=== PATIENT | male | born 1980 | race African-American/Black ===

== ENCOUNTER 2016-08-21 21:15 | Emergency (ER) | payer OTHER ==
[2016-08-21 21:21] VITALS: BP 118/56; PULSE 88; TEMP 98.7; BMI 28.8
--- NOTE | 2016-08-21 22:01 | PDOC ---
History of Present Illness - General Chief Complaint: Pain, Acute Stated Complaint: LOW BACK/HIP PAIN Time Seen by Provider: 08/21/16 21:20 - History of Present Illness Initial Comments: This 36-year-old man, otherwise healthy presents with a several hour history of right lower back/right buttock pain. 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 He denies trauma or overuse of the area. Throughout the subsequent hours pain became more severe. He denies radiation of pain below the buttock/numbness of leg or groin/weakness. No previous history of lower back pain. No history of trauma at any time to the lower back or buttock. He has had no urinary or bowel abnormalities today. Past History - Past Medical History Allergies/Adverse Reactions: Allergies Allergy/AdvReac Type Severity Reaction Status Date / Time No Known Allergies Allergy Verified 08/21/16 21:16 Home Medications: Ambulatory Orders Diclofenac Sodium [Voltaren -] 75 mg PO BID PRN #20 tablet. 08/21/16 Tizanidine HCl [Zanaflex (Nf) -] 2 mg PO TID #12 tablet 08/21/16 Asthma: No Diabetes: No HTN: No Other medical history: DENIES - Psycho/Social/Smoking Cessation Hx Anxiety: No Suicidal Ideation: No Smoking Status: Yes Smoking History: Current every day smoker Have you smoked in the past 12 months: Yes Number of Cigarettes Smoked Daily: 15 Information on smoking cessation initiated: Yes 'Breaking Loose' booklet given: 08/21/16 Hx Alcohol Use: Yes Drug/Substance Use Hx: No Substance Use Type: None Review of Systems - Review of Systems Able to Perform ROS?: Yes Comments:: 12 point review of systems is negative except for what is noted in the history of present illness *Physical Exam - Vital Signs Last Vital Signs Temp Pulse Resp BP Pulse Ox 98.7 F 88 16 118/56 100 08/21/16 21:16 08/21/16 21:16 08/21/16 21:16 08/21/16 21:16 08/21/16 21:16 - Physical Exam Comments: GENERAL: The patient is awake, alert, and fully oriented, in moderate distress Vital signs as noted. HEAD: Normal with no signs of trauma. EYES: Pupils equal, round and reactive to light, extraocular movements intact, sclera anicteric, conjunctiva clear with no pallor. ENT: moist mucous membranes. Ears normal, nares patent, oropharynx clear without exudates. NECK: Normal range of motion, supple without lymphadenopathy, JVD, or masses. LUNGS: Breath sounds equal, clear to auscultation bilaterally. No wheeze/ crackles. HEART: Regular rate and rhythm, normal S1 and S2 without murmur or rub. ABDOMEN: Soft/nontender/nondistended. BS wnl. No guarding or rebound. No palpable masses. No hepatosplenomegaly BACK:direct tenderness to palpation right sacroiliac joint, no deformity noted mild tenderness sciatic notch,right side pain on straight leg raising, right side at 30; no pain on straight leg raising, left side EXTREMITIES: no edema. No clubbing or cyanosis. No cords, erythema, or tenderness. NEUROLOGICAL: Cranial nerves II through XII grossly intact. motor/sensory intact throughout; speech normal. PSYCH: Normal mood, normal affect. SKIN: Warm, Dry, normal turgor, no rashes or lesions noted. Progress Note - Progress Note Progress Note: This otherwise healthy 36-year-old man, working in construction, presents with history and physical exam consistent with right sided sacroiliac joint inflammation and right-sided sciatica. Although he cannot recall specific trauma , he easily could have overused or sprained sacroiliac ligament during his work. Toradol 60 mg IM was administered. Patient had significant relief in his pain after Toradol IM. The patient will be discharged with prescription for diclofenac 75 mg twice a day as needed along with tizanidine 2 mg up to 3 times a day for muscle spasms. He should not work for the next 2 days. He has never seen an orthopedist; he will be given referral information for Dr. Lopez, with whom he should follow-up within a week if he has persistent pain. He should return to the emergency room if he has severe pain or experiences numbness/weakness or urinary retention *DC/Admit/Observation/Transfer Diagnosis at time of Disposition: Sciatica, right side Sacroiliac (ligament) sprain Qualifiers: Encounter type: initial encounter Qualified Code(s): S33.6XXA - Sprain of sacroiliac joint, initial encounter - Discharge Dispostion Disposition: HOME Condition at time of disposition: Stable - Prescriptions Prescriptions: Diclofenac Sodium [Voltaren -] 75 mg PO BID PRN #[address] tablet[address] KNIGHT Reason: Pain Tizanidine HCl [Zanaflex (Nf) -] 2 mg PO TID #12 tablet - Referrals Referrals: Camacho Lopez MD [Staff Physician] - 1 week - Patient Instructions Printed Discharge Instructions: Sacroiliac Joint Pain Additional Instructions: avoid strenuous activity for the next 2-3 days Diclofenac 75 mg twice a day as needed for pain Tizanidine 2 mg up to 3 times a day for muscle spasms(may make you sleepy) return to ER if your pain is persistently severe or you have numbness/weaknes in legs no work for the next 2 days followup with orthopedist(Dr Lopez) if you have persistent pain - Post Discharge Activity Work/School Note: Back to Work
[2016-08-21] MEDS ORDERED: KETOROLAC TROMETHAMINE 60 MG/2 ML VIAL IM ONE (22:02)
[2016-08-21] MEDS ORDERED: KETOROLAC TROMETHAMINE 60 MG/2 ML VIAL ONE (22:08)
== END 2016-08-21 23:26 | disposition home or self-care (01) ==
LOC: FER 21:15
PROC: 3E0233Z Introduction of Anti-inflammatory into Muscle, Percutaneous Approach (ICD-10-PCS; principal; 2016-08-21)
DX: M54.31 Sciatica, right side (principal); S33.6XXA Sprain of sacroiliac joint, initial encounter; X58.XXXA Exposure to other specified factors, initial encounter; Y93.89 Activity, other specified; Y92.9 Unspecified place or not applicable; Y99.0 Civilian activity done for income or pay; F17.210 Nicotine dependence, cigarettes, uncomplicated
CPT/HCPCS: 99282-25

== ENCOUNTER 2017-08-13 12:47 | Emergency (ER) | payer OTHER ==
[2017-08-13 13:00] VITALS: BP 150/80; PULSE 80; TEMP 98.5; BMI 28.1
--- NOTE | 2017-08-13 13:37 | PDOC ---
History of Present Illness - General History Source: Patient (Patient walked in complaining of lower back pain of sudden onset after lifting heavy pump at work) Exam Limitations: No Limitations - History of Present Illness Timing/Duration: 1-3 hours Severity: moderate, severe Modifying Factors: improves with: rest Associated Symptoms: denies: denies symptoms, chest pain, cough, diaphoresis, fever/chills, headaches, loss of appetite, malaise, nausea/vomiting, rash, seizure, shortness of breath, syncope, weakness, other <Carissa Velazquez - Last Filed: 08/13/17 14:17> <Tobi Bernabe - Last Filed: 08/13/17 17:17> - General Chief Complaint: Pain Stated Complaint: LOWER BACK PAIN Time Seen by Provider: 08/13/17 12:52 Past History - Travel Traveled outside of the country in the last 30 days: No Close contact w/someone who was outside of country & ill: No - Past Medical History Asthma: No COPD: No Diabetes: No HTN: No - Suicide/Smoking/Psychosocial Hx Smoking Status: Yes Smoking History: Current every day smoker Have you smoked in the past 12 months: Yes Number of Cigarettes Smoked Daily: 10 Information on smoking cessation initiated: Yes 'Breaking Loose' booklet given: 08/13/17 Hx Alcohol Use: Yes (COUPLE OF TIMES /WEEK) Drug/Substance Use Hx: Yes (MARIJUANA) Substance Use Type: Alcohol, Marijuana <Carissa Velazquez - Last Filed: 08/13/17 14:17> <Tobi Bernabe - Last Filed: 08/13/17 17:17> - Past Medical History Allergies/Adverse Reactions: Allergies Allergy/AdvReac Type Severity Reaction Status Date / Time No Known Allergies Allergy Verified 08/13/17 12:52 Home Medications: Ambulatory Orders Ibuprofen [Motrin -] 600 mg PO TID #21 tablet 08/13/17 Methocarbamol [Robaxin -] 500 mg PO TID #21 tablet 08/13/17 *Physical Exam - Vital Signs Last Vital Signs Temp Pulse Resp BP Pulse Ox 98.5 F 80 18 150/80 98 08/13/17 12:48 08/13/17 12:48 08/13/17 12:48 08/13/17 12:48 08/13/17 12:48 - Physical Exam General Appearance: Yes: Nourished, Appropriately Dressed, Moderate Distress, Thin HEENT: positive: Normal ENT Inspection Neck: positive: Supple Respiratory/Chest: positive: Lungs Clear Cardiovascular: positive: Regular Rate Musculoskeletal: positive: Muscle Spasm, Vertebral Tenderness Extremity: positive: Normal Capillary Refill, Normal Inspection Integumentary: positive: Normal Color, Dry, Warm, Swelling Neurologic: positive: Fully Oriented, Alert, Normal Mood/Affect <Carissa Velazquez S - Last Filed: 08/13/17 14:17> - Vital Signs Last Vital Signs Temp Pulse Resp BP Pulse Ox 98.5 F 80 18 150/80 98 08/13/17 12:48 08/13/17 12:48 08/13/17 12:48 08/13/17 12:48 08/13/17 12:48 <Tobi Bernabe - Last Filed: 08/13/17 17:17> ED Treatment Course - RADIOLOGY Radiograph Interpretation: 08/13/17 17:17 EXAM#: TYPE/EXAM: RESULT: [id number] RAD/SPINE-LUMBAR ONLY Lumbar Spine Series. CLINICAL HISTORY: Low back pain AP, lateral and coned down lateral views of the lumbar spine were obtained. The examination reveals the pedicles to be intact without evidence of lytic or blastic lesions. There is no evidence of fracture, malalignment or collapse. The intervertebral spaces are preserved. The visualized soft tissues are unremarkable. IMPRESSION: Normal lumbar spine Reported By: Adonis Haynes MD - Medications Given in the ED: ED Medications Discontinued Medications Generic Name Dose Route Start Last Admin Trade Name Freq PRN Reason Stop Dose Admin Cyclobenzaprine HCl 10 mg 08/13/17 14:57 08/13/17 15:16 Flexeril - PO 08/13/17 14:58 10 mg ONCE ONE Administration Ketorolac Tromethamine 30 mg 08/13/17 13:39 08/13/17 13:49 Toradol Injection - IVPUSH 08/13/17 13:40 30 mg ONCE ONE Administration <Tobi Bernabe - Last Filed: 08/13/17 17:17> *DC/Admit/Observation/Transfer - Discharge Dispostion Admit: No <Carissa Velazquez S - Last Filed: 08/13/17 14:17> <Tobi Bernabe - Last Filed: 08/13/17 17:17> Diagnosis at time of Disposition: Low back strain Qualifiers: Encounter type: initial encounter Qualified Code(s): S39.012A - Strain of muscle, fascia and tendon of lower back, initial encounter - Discharge Dispostion Disposition: HOME Condition at time of disposition: Stable - Prescriptions Prescriptions: Ibuprofen [Motrin -] 600 mg PO TID #21 tablet Methocarbamol [Robaxin -] 500 mg PO TID #21 tablet - Referrals Referrals: Amol Meehan MD [Staff Physician] - - Patient Instructions Printed Discharge Instructions: DI for Low Back Pain - Post Discharge Activity Forms/Work/School Notes: Back to Work
[2017-08-13] MEDS ORDERED: KETOROLAC TROMETHAMINE 30 MG/1 ML VIAL IVPUSH ONE (13:39)
[2017-08-13] MEDS ORDERED: KETOROLAC TROMETHAMINE 30 MG/1 ML VIAL ONE (13:43)
[2017-08-13] MEDS ORDERED: CYCLOBENZAPRINE HCL 10 MG TABLET (FP) PO ONE (14:57)
[2017-08-13] MEDS ORDERED: CYCLOBENZAPRINE HCL 10 MG TABLET (FP) ONE (15:15)
== END 2017-08-13 15:20 | disposition home or self-care (01) ==
LOC: FER 12:47
PROC: 3E0333Z Introduction of Anti-inflammatory into Peripheral Vein, Percutaneous Approach (ICD-10-PCS; principal; 2017-08-13)
DX: S39.012A Strain of muscle, fascia and tendon of lower back, initial encounter (principal); X58.XXXA Exposure to other specified factors, initial encounter; Y93.89 Activity, other specified; Y92.9 Unspecified place or not applicable; Y99.0 Civilian activity done for income or pay; F17.210 Nicotine dependence, cigarettes, uncomplicated
CPT/HCPCS: 72100-TC; 99282-25

== ENCOUNTER 2020-02-15 15:23 | Emergency (ER) | payer BC ==
[2020-02-15 15:38] VITALS: BMI 26.6
[2020-02-15] MEDS ORDERED: SODIUM CHLORIDE 0.9% 500 ML INFUS.BAG IV ONE (15:40)
--- NOTE | 2020-02-15 15:56 | PDOC ---
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 Started feeling lightheaded and orthostatic at work, was sent home where he took a brief nap but then upon standing became very lightheaded again so he presents for evaluation. No cardiopulmonary complaints, no dehydration or infection, otherwise normal exercise tolerance at baseline. No history of syncope or heat exhaustion in the past. 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 IV hydration EKG Reassess and disposition accordingly Discharge - Discharge Information Problems reviewed: Yes Clinical Impression/Diagnosis: Heat exhaustion Qualifiers: Encounter type: initial encounter Qualified Code(s): T67.5XXA - Heat exhaustion, unspecified, initial encounter Condition: Stable - Follow up/Referral - Patient Discharge Instructions - Post Discharge Activity
--- NOTE | 2020-02-15 16:00 | PDOC ---
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 Patient states he forgot to drink water and stay hydrated. He denies any complaints aside from subjective weakness and dehydration. Tried drinking water but felt uncomfortable so came into the ER to make sure he is okay and not dehydrated. Denies headache, blurry vision, chest pain, nausea, vomiting, back pain, difficulty breathing, SOB. PCP: None PSH: None reported Social Hx: Smokes 3/4 pack daily, recreational marijuana usage. Denies illicit drugs Allergies: NKA, NKDA Past History - Medical History Allergies/Adverse Reactions: Allergies Allergy/AdvReac Type Severity Reaction Status Date / Time No Known Allergies Allergy Verified 02/15/20 15:25 Home Medications: Ambulatory Orders NK [No Known Home Medication] 02/15/20 Asthma: No COPD: No Diabetes: No HTN: No - Psycho-Social/Smoking History Smoking Status: Yes Smoking History: Current every day smoker Have you smoked in the past 12 months: Yes Number of Cigarettes Smoked Daily: 15 Information on smoking cessation initiated: Yes 'Breaking Loose' booklet given: 08/13/17 - Substance Abuse Hx (Audit-C & DAST Scrn) How often the patient has a drink containing alcohol: 2-4 times / month Number of drinks the patient has on a typical day: 5 or 6 How often the patient has six or more drinks on one occasion: Monthly Score: In Men: 4 or > Positive; In Women: 3 or > Positive: 6 Screen Result (Pos requires Nsg. Audit-10AR): Positive In the last yr the pt used illegal drug/Rx for NonMed reason: No Score: Yes response is considered Positive: 0 Screen Result (Positive result requires Nsg. DAST-10): Negative Review of Systems - Review of Systems Able to Perform ROS?: Yes Comments:: CONSTITUTIONAL: Present: Fatigue Absent: fever, no chills EYES: Absent: visual changes ENT: Absent: ear pain, no sore throat CARDIOVASCULAR: Absent: chest pain, no palpitations RESPIRATORY: Absent: cough, no SOB GI: Absent: abdominal pain, no nausea, no vomiting, no constipation, no diarrhea GENITOURINARY: Absent: dysuria, no frequency, no hematuria MUSKULOSKELETAL: Absent: back pain, no arthralgia, no myalgia SKIN: Absent: rash NEURO: Absent: headache *Physical Exam - Vital Signs Last Vital Signs Temp Pulse Resp BP Pulse Ox 98.8 F 59 L 16 140/83 100 02/15/20 15:02/15/20 15:02/15/20 15:02/15/20 15:02/15/20 15:25 - Physical Exam GENERAL: Well-appearing, well-nourished. No apparent distress. HEENT: Normocephalic, atraumatic. PERRL, EOM intact. CARDIOVASCULAR: Normal S1, S2. Regular rate and rhythm. PULMONARY: No evidence of respiratory distress. Lungs clear to auscultation bilaterally. No wheezing, rales or rhonchi. ABDOMEN: Soft, non-distended, non-tender. EXTREMITIES: Normal ROM in all four extremities. No gross deformities. SKIN: Warm, dry. No rash NEUROLOGICAL: No focal neurological deficits. 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 Patient states he forgot to drink water and stay hydrated. He denies any complaints aside from subjective weakness and dehydration. Tried drinking water but felt uncomfortable so came into the ER to make sure he is okay and not dehydrated. Vital Signs Temp Pulse Resp BP Pulse Ox 98.8 F 59 L 16 140/83 100 02/15/20 15:02/15/20 15:02/15/20 15:02/15/20 15:02/15/20 15:25 DDx IBNLT: Dehydration, heat exhaustion, less likely heat stroke Plan: IV hydration, EKG, re-assess EKG: Sinus bradycardia rate of 43, pr 142, narrow complexes, qrs 88, normal axis, no hypertrophy, no ST elevations or depressions, normal T waves, no evidence of brugada, wpw, hocm, ARVD, or wellens. Re-assessment: Patient feeling much better after IV hydration and requesting to be discharged from ED The patient appears clinically sober, is A&O x4, and appears to be capable and have capacity to make reasonable decisions. The patient states they are currently in the emergency department, knows who the president is, states the correct time, correct day, and correct month. The patient is ambulatory in ER and has walked around the nursing station multiple times with a straight gait, and is not ataxic. Tolerating PO well, ate a sandwich and drank juice. Denies having any SI or HI. Patient states will not be driving home. I discussed the physical exam findings, ancillary test results and final diagnoses with the patient. I answered all of the patient's questions. The patient was satisfied with the care received and felt comfortable with the discharge plan and treatment plan. The patient will call their primary care physician within 24 hours to arrange follow-up and will return to the Emergency Department with any new, persistent or worsening symptoms. Dispo: Home with return precautions, PCP fu Please note, this clinical encounter is taking place during a federal and state health care emergency attributable to the novel [place] Virus pandemic. The [place] of the Department of Health and Human Services has declared, pursuant to the Public Health Service Act 319F-3 (42 U.S.C. 247d-6d), that a covered persons activities related to medical countermeasures against COVID-19 will be immune from liability under Federal and State law. Discharge - Discharge Information Problems reviewed: Yes Clinical Impression/Diagnosis: Dehydration Heat exhaustion Qualifiers: Encounter type: initial encounter Qualified Code(s): T67.5XXA - Heat exhaustion, unspecified, initial encounter Condition: Stable Disposition: HOME - Admission No - Follow up/Referral Referrals: [facility] [place] [place] [Provider Group] - Patient Discharge Instructions Patient Printed Discharge Instructions: DI for Heat Exhaustion and Heat Stroke Additional Instructions: You came into the ER after being dehydrated from the intense heat outside. We hydrated you and you felt better. You must return to the Emergency Department with any new complaints, if your symptoms persist and do not improve or if you develop any other new or worsening concerns. As discussed, please call to follow up with your Primary Care physician in 1-2 days to discuss what happened to you in the emergency room, and make sure you are being looked after and taken care of. Your emergency room visit is not complete without this follow up appointment. Please read the attached handouts for further information about your ER visit and what you should do moving forward. Thank you for coming to the [facility] ER. We hope you feel better soon! Print Language: GABONESE - Post Discharge Activity
[2020-02-15 17:13] VITALS: BP 133/86; PULSE 48; TEMP 98.3
--- NOTE | 2020-02-16 09:16 | EKG ---
Test Reason : Blood Pressure : / mmHG Vent. Rate : 043 BPM Atrial Rate : 043 BPM P-R Int : 142 ms QRS Dur : 088 ms QT Int : 454 ms P-R-T Axes : 065 050 031 degrees QTc Int : 383 ms MARKED SINUS BRADYCARDIA ABNORMAL ECG NO PREVIOUS ECGS AVAILABLE Confirmed by MD DOMINGO, HAZEL ([id number]) on 02/16/2020 9:15:39 AM Referred By: DR MEDRANO Confirmed By:HAZEL LANE MD
== END 2020-02-15 17:20 | disposition home or self-care (01) ==
LOC: FER 15:23
DX: T67.5XXA Heat exhaustion, unspecified, initial encounter (principal)
CPT/HCPCS: 93005; 99284-25

== ENCOUNTER 2023-07-27 10:44 | Emergency (ER) | payer BC ==
[2023-07-27 10:52] VITALS: BP 158/90; PULSE 100; RESP 16; TEMP 99.4; BMI 26.6
== END 2023-07-27 11:47 | disposition home or self-care (01) ==
LOC: FER 10:44
DX: H92.02 Otalgia, left ear (principal); K08.89 Other specified disorders of teeth and supporting structures; H66.92 Otitis media, unspecified, left ear
CPT/HCPCS: 99283-25

== ENCOUNTER 2023-11-18 06:24 | Emergency (ER) | payer BC ==
[2023-11-18 06:31] VITALS: BP 129/89; PULSE 92; RESP 18; TEMP 98.3; BMI 25.8
== END 2023-11-18 07:16 | disposition home or self-care (01) ==
LOC: FER 06:24
DX: S62.642A Nondisplaced fracture of proximal phalanx of right middle finger, initial encounter for closed fracture (principal); W01.0XXA Fall on same level from slipping, tripping and stumbling without subsequent striking against object, initial encounter
CPT/HCPCS: 73130-TC-RT-FY; 73140-TC-RT-FY; 99283-25